=== PATIENT | female | born 1965 | race Caucasian/White ===

== ENCOUNTER → 2016-12-13 11:09 | Outpatient (CLI) | payer BC, OTHER ==
[2014-04-24 10:14] VITALS: BMI 24.4
[~2016-12-13 11:09] MED LIST: IRON PO; MAGNESIUM GLUC500 M1 PO; PERCOCET 5-3251 TAB PO; PHENERGAN25 M1 PO; TUMS500 MG PO; ULTRAM50 MG PO; XANAX0.5 MG PO; [UNRECOGNIZED DRUG - OTHER] TP
== END | disposition home or self-care (01) ==
LOC: D.NM 11:09
DX: R11.2 Nausea with vomiting, unspecified (principal)

== ENCOUNTER → 2017-03-24 12:32 | Outpatient (CLI) | payer BC, OTHER ==
[2014-04-24 10:14] VITALS: BMI 24.4
== END | disposition home or self-care (01) ==
LOC: D.MRI 12:32
DX: R55 Syncope and collapse (principal)

== ENCOUNTER → 2018-09-21 08:57 | Outpatient (CLI) | payer OTHER ==
[2014-04-24 10:14] VITALS: BMI 24.4
== END | disposition home or self-care (01) ==
LOC: D.US 08:57
DX: Z82.3 Family history of stroke (principal)